=== PATIENT | female | born 1970 | race Caucasian/White ===

== ENCOUNTER 2024-09-23 13:05 | Outpatient (OUT) | payer OTHER, SELFPAY ==
--- NOTE | 2024-09-23 | XR_ITS ---
The [address] [address] Patient Name: ARISTEO LUEVANO MRN: [id number] date: 1970 Sex: F Assigned Patient Location: [facility] Current Patient Location: Accession/Order Number: [id number] Exam Date: 09/23/2024 13:07 Report Date: 09/24/2024 08:04 At the request of: FANNY HORTON Procedure: XR foot RT min 3V PROCEDURE: XR foot RT min 3V COMPARISON: None. HISTORY: RIGHT FOOT PAIN FINDINGS: BONES:Bony fusion the first metatarsal-phalangeal joint with no internal hardware. No acute fracture or dislocation. Mild degenerative changes with enthesopathic spurring of the calcaneus and marginal osteophyte formation SOFT TISSUES:Negative. No visible soft tissue swelling. EFFUSION:None visible. OTHER: Negative. XR/XR foot RT min 3V IMPRESSION: Bony fusion first metatarsal-phalangeal joint Electronically authenticated by: GRIS PACHECO Date: 09/24/2024 08:04
== END 2024-09-23 13:06 | disposition home or self-care (01) ==
PROVIDERS: Visit Provider Physician Assistant
DX: M79.671 Pain in right foot (principal); M77.31 Calcaneal spur, right foot
CPT/HCPCS: 73630